=== PATIENT | male | born 1985 | race Caucasian/White ===

== ENCOUNTER 2024-01-15 21:24 | Emergency (ER) | payer BC ==
--- OUTSIDE RECORDS SUMMARY | 2024-01-15 21:29 | XMS REPORT | Continuity of Care Document ---
Author Name Unknown Address [address] [facility] [address] [place] [id number] [facility] thconnect Address [address] [facility] [address] [place] [address] Care Team Providers Care Cessation Systems Outreach Specialist Name Role Phone Only, Adc Test Attending Clinician Unavailable Padmini Melendez MD Attending Clinician PADMINI MLEENDEZ Attending Clinician Unavailabl e Doctor Unassigned, [place] Attending Clinician U navailable Payers Payer Name Policy Type Policy Number Effective Date Expirati on Date Source Allergies, Adverse Reactions, Alerts Allergy Name Allergy Type Status Severity Reaction(s) Onset Date Inactive Date Treating Clinician Comments Source NO KNOWN ALLERGIE S Drug Class Active [facility] Social History Social Habit Start Date Stop Date Quantity Comments Source Sex Assigned At [facility] Exposure to SARS-CoV-2 (event) Not sure [facility] Smoking Status Start Date Stop Date Source Unknown if ever smoked [facility] Procedures Procedure Date / Time Performed Performing Clinicia n Source CONSENT/REFUSAL FOR DIAGNOSIS AND TREATMENT 2020-09-09 15:35:34 Doctor Unassigned, [place] [facility] ASSIGNMENT OF BENEFITS 2020-09-09 15:35:22 Docto r Unassigned, [place] [facility] Encounters Start Date/Time End Date/Time Encounter Type Admission Type Attending Clinicians Care Facility Care Department Encounter ID Source 2020-09-09 09:36:59 2020-09-09 09:51:59 Laboratory Only Only, Adc Test Padmini Melendez [facility] [id number] [facility] 2020-09-09 09:30:00 2020-09-09 09:30:00 Outpatient PADMINI RICHARDS [facility] [id number] [facility] 2020-09-09 00:00:00 2020-09-09 00:00:00 Orders Only Doctor Unassigned, [place] [facility] [id number] [facility]
--- NOTE | 2024-01-15 22:29 | RAD REPORT ---
EXAM DESCRIPTION: RAD - Chest Single View - 01/15/2024 10:19 pm CLINICAL HISTORY: PALPITATIONS Chest pain. COMPARISON: <Comparisons> FINDINGS: Portable technique limits examination quality. The lungs are grossly clear. The heart is normal in size. No displaced fractures. IMPRESSION: No acute intrathoracic process suspected.
[2024-01-15 23:10] LABS: Hemoglobin 14.9 g/dL (13.6-17.9); MCH 29.6 pg (27.0-35.0)
[2024-01-15 23:15] LABS: Absolute Basophils 0.1 K/uL (0-0.5); Absolute Eosinophils 0.3 K/uL (0-0.5); Absolute Lymphocytes (CBC) 2.4 K/uL (0.7-4.9); Absolute Monocytes 0.6 K/uL (0.1-1.3); Absolute Neutrophil 5.2 K/uL (1.8-8.0); Basophils % 0.8 % (0-1.3); Eosinophils % 3.6 % (0-4.4); Hematocrit 43.9 % (39.6-49.0); Lymphocytes % 27.7 % (15.3-44.8); MCV 87.1 fL (80-100); MPV 7.4 fL (7.6-11.3); Monocytes % 7.1 % (3.3-12.3); Neutrophils % 60.8 % (41.7-73.7); Nucleated Red Blood Cells % 0.3 % (0-0); Platelets 307 thou/uL (152-406); RBC Red Blood Cell Count 5.04 M/uL (4.33-5.43); Red Cell Distribution Width 13.4 % (12.1-15.2)
[2024-01-15 23:44] LABS: ALT/SGPT 35 U/L (16-61); AST/SGOT 16 U/L (15-37); Albumin 3.9 g/dL (3.4-5.0); Albumin/Globulin Ratio 1.1 (1.1-1.8); Alkaline Phosphatase 39 U/L (45-117); Anion Gap 6.6 mEq/L (5.0-15.0); BUN Blood Urea Nitrogen 16 mg/dL (7-18); Bicarbonate 29 mEq/L (21-32); Bilirubin Total 0.3 mg/dL (0.2-1.0); Globulin 3.7 g/dL (2.3-3.5); Glomerular Filtration Rate 97 ml/min (=/>90); Glucose Level 96 mg/dL (74-106); Magnesium 2.2 mg/dL (1.6-2.4); Potassium 3.6 mEq/L (3.5-5.1); Protein, Total 7.6 g/dL (6.4-8.2); Sodium Level 140 mEq/L (136-145)
[2024-01-15 23:48] LABS: Bilirubin Direct < 0.2 mg/dL (0-0.2); Bilirubin Indirect, Calculated 0.1 mg/dL (0.2-0.8); Troponin High Sensitivity < 3.0 pg/mL (<58.9)
--- NOTE | 2024-01-16 00:02 | EDPHYS ---
Physician Documentation [facility] Name: Brent Marcos Age: 38 yrs Sex: Male : 1985 Arrival Date: 01/15/2024 Time: 21:24 Bed 17 Private MD: ED Physician Tyrese Rosenbaum HPI: 01/14 22:30 This 38 yrs old Male presents to ER via Ambulatory with complaints of Palpitations, rt high heart rate. 22:30 Patient presents to the ED with 2 episodes of palpitations today. Patient states that rt his watch told him that his heart rate was about 190. Patient reports a bicuspid aortic valve which he is seeing a sack maker but denies other symptoms. States that he had no chest pain but was somewhat short of breath. States the symptoms have resolved at this time. Denies other acute complaints, symptoms are moderate severity, no other aggravating or alleviating factors.. Historical: - Allergies: 21:46 No Known Allergies; as6 - PMHx: 21:46 Hypercholesterolemia; as6 - PSHx: 21:46 shoulder; as6 - Immunization history:: Adult Immunizations up to date. - Infectious Disease History:: Denies. - Social history:: Smoking status: Patient/guardian denies using tobacco, Stopped _ months ago 8. - Family history:: not pertinent. ROS: 22:30 Constitutional: Negative for fever, chills, and weight loss, Abdomen/GI: Negative for rt abdominal pain, nausea, vomiting, diarrhea, and constipation, MS/Extremity: Negative for injury and deformity, Skin: Negative for injury, rash, and discoloration, Neuro: Negative for headache, weakness, numbness, tingling, and seizure, 22:30 Cardiovascular: Positive for palpitations, Negative for chest pain, 22:30 Respiratory: Positive for shortness of breath, Negative for cough, Exam: 22:30 Constitutional: This is a well developed, well nourished patient who is awake, alert, rt and in no acute distress. Head/Face: Normocephalic, atraumatic. Chest/axilla: Normal chest wall appearance and motion. Nontender with no deformity. No lesions are appreciated. Cardiovascular: Regular rate and rhythm with a normal S1 and S2. No gallops, murmurs, or rubs. Normal PMI, no JVD. No pulse deficits. Respiratory: Lungs have equal breath sounds bilaterally, clear to auscultation and percussion. No rales, rhonchi or wheezes noted. No increased work of breathing, no retractions or nasal flaring. Abdomen/GI: Soft, non-tender, with normal bowel sounds. No distension or tympany. No guarding or rebound. No evidence of tenderness throughout. Skin: Warm, dry with normal turgor. Normal color with no rashes, no lesions, and no evidence of cellulitis. MS/ Extremity: Pulses equal, no cyanosis. Neurovascular intact. Full, normal range of motion. Neuro: Awake and alert, GCS 15, oriented to person, place, time, and situation. Cranial nerves II-XII grossly intact. Motor strength 5/5 in all extremities. Sensory grossly intact. Cerebellar exam normal. Normal gait. 22:30 ECG was reviewed by the Attending Physician. Vital Signs: 21:44 BP 145 / 82; Pulse 91; Resp 18; Temp 97.6; Pulse Ox 98% ; Weight 108.86 kg; Height 5 as6 ft. 6 in. ; Pain 0/10; 22:30 BP 98 / 55; Pulse 82; Resp 18; Pulse Ox 97% ; cp4 / 00:13 BP 119 / 43; Pulse 83; Resp 16; Pulse Ox 97% on R/A; jb4 01/14 21:44 Body Mass Index 38.74 (108.86 kg, 167.64 cm) as6 01/14 21:44 Pain Scale: Adult as6 MDM: 01/14 21:59 Patient medically screened. rt 01/15 00:02 Differential diagnosis: SVT, A-fib, palpitations. Data reviewed: vital signs, nurses rt notes. Consideration of Admission/Observation Escalation of care including admission/observation considered. Stable rhythm in the emergency department, symptoms are improved, labs are benign. No indications for admission at this time, patient instructed to follow-up with cardiology as an outpatient. Independent interpretation of the following test(s) in the Emergency Department X-Ray: My interpretation is No edema seen on interpretation of x-ray images. Test considered but Not performed: CT: Low suspicion for pulmonary embolism, CT angiogram not indicated. Care significantly affected by the following chronic conditions: Bicuspid aortic valve. Counseling: I had a detailed discussion with the patient and/or guardian regarding the historical points, exam findings, and any diagnostic results supporting the discharge/admit diagnosis, lab results, radiology results, the need for outpatient follow up, to return to the emergency department if symptoms worsen or persist or if there are any questions or concerns that arise at home. 01/14 22:05 Order name: Basic Metabolic Panel; Complete Time: 23:54 rt 01/14 22:05 Order name: CBC with Diff; Complete Time: 23:54 rt 01/14 22:05 Order name: LFT's; Complete Time: 23:54 rt 01/14 22:05 Order name: Magnesium; Complete Time: 23:54 rt 01/14 22:05 Order name: Troponin HS; Complete Time: 23:54 rt 01/14 22:05 Order name: TSH; Complete Time: 23:54 rt 01/14 22:05 Order name: XRAY Chest (1 view); Complete Time: 22:32 rt 01/14 22:05 Order name: EKG; Complete Time: 22:05 rt 01/14 22:05 Order name: Cardiac monitoring; Complete Time: 22:32 rt 01/14 22:05 Order name: EKG - Nurse/Tech; Complete Time: 22:33 rt 01/14 22:05 Order name: IV Saline Lock; Complete Time: 22:39 rt 01/14 22:05 Order name: Labs collected and sent; Complete Time: 22:39 rt 01/14 22:05 Order name: O2 Per Protocol; Complete Time: 22:33 rt 01/14 22:05 Order name: O2 Sat Monitoring; Complete Time: 22:33 rt EC/03 22:30 Rate is 80 beats/min. Rhythm is regular, Normal Sinus Rhythm with No ectopy. QRS [place] rt is Normal. OK interval is normal. QRS interval is normal. QT interval is normal. No Q waves. No ST changes noted. Interpreted by me. Administered Medications: No medications were administered Disposition Summary: 01/16/24 00:01 Discharge Ordered Notes: Location: Home rt Problem: new rt Symptoms: have improved rt Condition: Stable rt Diagnosis - Palpitations rt Followup: rt - With: Private Physician - When: 2 - 3 days - Reason: Discharge Instructions: - Discharge Summary Sheet rt - Palpitations rt Forms: - Medication Reconciliation Form rt - Antibiotic Education rt - Prescription Opioid Use rt - Patient Portal Instructions rt - Leadership Thank You Letter rt Signatures: Dispatcher [employer] EDMS Pasquale Hernandez RN RN as6 Tyrese Rosenbaum MD MD rt Corrections: (The following items were deleted from the chart) 21:47 21:46 PSHx: None; as6 as6 22:05 22:05 BASIC METABOLIC PANEL+C.LAB.BRZ ordered. EDMS EDMS 22:05 22:05 CBC+H.LAB.BRZ ordered. EDMS EDMS 22:05 22:05 HEPATIC FUNCTION+C.LAB.BRZ ordered. EDMS EDMS 22:05 22:05 MAGNESIUM+C.LAB.BRZ ordered. EDMS EDMS 22:05 22:05 Troponin High Sensitivity+C.LAB.BRZ ordered. EDMS EDMS 22:05 22:05 THYROID STIMULAT HORMONE+C.LAB.BRZ ordered. EDMS EDMS
--- NOTE | 2024-01-16 00:02 | ER ---
Nurse's Notes [facility] Name: Brent Marcos Age: 38 yrs Sex: Male : 1985 Arrival Date: 01/15/2024 Time: 21:24 Bed 17 Private MD: Diagnosis: Palpitations Presentation: 01/14 21:44 Chief complaint: Patient states: "I've been having palpations off and on all day and as6 there have been times today where my heart rate has gone up to 190 with just me sitting on the couch". Coronavirus screen: At this time, the client does not indicate any symptoms associated with coronavirus-19. Ebola Screen: No symptoms or risks identified at this time. Initial Sepsis Screen: Does the patient meet any 2 criteria? No. Patient's initial sepsis screen is negative. Does the patient have a suspected source of infection? No. Patient's initial sepsis screen is negative. Risk Assessment: Do you want to hurt yourself or someone else? Patient reports no desire to harm self or others. Onset of symptoms was January 15, 2024. 21:44 Method Of Arrival: Ambulatory as6 21:44 Acuity: ELISE 2 as6 Historical: - Allergies: 21:46 No Known Allergies; as6 - PMHx: 21:46 Hypercholesterolemia; as6 - PSHx: 21:46 shoulder; as6 - Immunization history:: Adult Immunizations up to date. - Infectious Disease History:: Denies. - Social history:: Smoking status: Patient/guardian denies using tobacco, Stopped _ months ago 8. - Family history:: not pertinent. Screenin:35 [facility] ED Fall Risk Assessment (Adult) History of falling in the last 3 months, cp4 including since admission No falls in past 3 months (0 pts) Confusion or Disorientation No (0 pts) Intoxicated or Sedated No (0 pts) Impaired Gait No (0 pts) Mobility Assist Device Used No (0 pt) Altered Elimination No (0 pt) Score/Fall Risk Level 0 - 2 = Low Risk Oriented to surroundings, Maintained a safe environment, Assessed \\T\\ reinforced patient's understanding of fall precautions, Hourly rounding (assess needs \\T\\ fall precautionary measures) done. Abuse screen: Denies threats or abuse. Nutritional screening: No deficits noted. Tuberculosis screening: No symptoms or risk factors identified. Assessment: 22:35 General: Appears uncomfortable, Behavior is calm, cooperative, appropriate for age. cp4 Pain: Denies pain. Cardiovascular: Reports palpitations, Denies chest pain, Rhythm is sinus rhythm. 01/15 00:12 Reassessment: Patient appears in no apparent distress at this time. Patient and/or jb4 family updated on plan of care and expected duration. Pain level reassessed. Patient is alert, oriented x 3, equal unlabored respirations, skin warm/dry/pink. Patient states feeling better. Vital Signs: 01/14 21:44 BP 145 / 82; Pulse 91; Resp 18; Temp 97.6; Pulse Ox 98% ; Weight 108.86 kg; Height 5 as6 ft. 6 in. ; Pain 0/10; 22:30 BP 98 / 55; Pulse 82; Resp 18; Pulse Ox 97% ; cp4 01/15 00:13 BP 119 / 43; Pulse 83; Resp 16; Pulse Ox 97% on R/A; jb4 01/14 21:44 Body Mass Index 38.74 (108.86 kg, 167.64 cm) as6 01/14 21:44 Pain Scale: Adult as6 ED Course: 01/14 21:28 Patient arrived in ED. mr 21:45 Tyrese Rosenbaum MD is Attending Physician. rt 21:46 Triage completed. as6 21:47 Arm band placed on right wrist. as6 21:57 Placed in gown. Bed in low position. Call light in reach. Side rails up X 1. Client as6 placed on continuous cardiac and pulse oximetry monitoring. NIBP monitoring applied. youth nutritional monitor on. 21:57 EKG done, by ED staff, reviewed by Tyrese Rosenbaum MD. as6 22:21 XRAY Chest (1 view) In Process Unspecified. EDMS 22:31 Naomy Contreras is Primary Nurse. cp4 22:35 Provided Education on: palpatitations.. cp4 22:39 Initial lab(s) drawn, by me, sent to lab. Inserted saline lock: 20 gauge in right ty antecubital area, using aseptic technique. Blood collected. 01/15 00:12 No provider procedures requiring assistance completed. IV discontinued, intact, jb4 bleeding controlled, No redness/swelling at site. Pressure dressing applied. Administered Medications: No medications were administered Medication: 01/14 22:35 VIS not applicable for this client. cp4 Outcome: 01/15 00:01 Discharge ordered by . rt 00:12 Discharged to home ambulatory, jb4 00:12 Condition: stable 00:12 Discharge instructions given to patient, Instructed on discharge instructions, follow up and referral plans. Demonstrated understanding of instructions, follow-up care, 00:14 Patient left the ED. jb4 Signatures: Dispatcher [employer] EDMA Vilma Strauss, Reg Reg mr Martin Brewer RN RN jb4 Pasquale Hernandez RN RN as6 Tyrese Rosenbaum MD MD rt Naomy Contreras cp4 Abdias Aguilar Corrections: (The following items were deleted from the chart) 01/14 21:47 21:46 PSHx: None; as6 as6
[2024-01-16 01:09] VITALS: BP 119/43; TEMP 97.6; O2SAT 97
--- NOTE | 2024-01-19 10:34 | EKG ---
Test Date: 2024-01-15 Test Time: 21:53:19 [employer] Team Member: MEASUREMENT RESULTS: Intervals: Rate: 80 IA: 172 QRSD: 80 QT: 364 QTc: 419 [place]: P: 57 IA: 172 QRS: 20 T: 52 INTERPRETIVE STATEMENTS: Normal sinus rhythm Cannot rule out Anterior infarct, age undetermined Abnormal ECG Compared to ECG 04/26/2014 17:04:31 No significant changes Electronically Signed On 01-19-24 10:32:16 CDT by Ciaran Davis
== END 2024-01-16 00:14 | disposition home or self-care (01) ==
LOC: ER 21:24
DX: R00.2 Palpitations (principal); E78.00 Pure hypercholesterolemia, unspecified
CPT/HCPCS: 36415; 71045; 80048; 80076; 83735; 84443; 84484; 85025; 93005; 99284